=== PATIENT | male | born 1985 | race Two or more races ===

== ENCOUNTER → 2024-04-20 | Emergency (ER) | payer BC ==
[~2024-04-20] VITALS: Ht 175.3 cm; Wt 83.9 kg
[~2024-04-20] MED LIST: KETOROLAC TROMETHAMINE 60 MG VIAL IM ONE; KETOROLAC TROMETHAMINE 60 MG VIAL IM STA
== END | disposition left against medical advice (07) ==
LOC: ER 07:40
DX: G89.11 Acute pain due to trauma (principal); S93.491A Sprain of other ligament of right ankle, initial encounter; S92.351A Displaced fracture of fifth metatarsal bone, right foot, initial encounter for closed fracture